=== PATIENT | male | born 1980 | race Caucasian/White ===

== ENCOUNTER 2017-01-28 07:54 | Emergency (ER) | payer BC ==
[~2017-01-28] VITALS: Ht 188 cm; Wt 113.0 kg
[~2017-01-28 07:54] MED LIST: CIPR500T4 PO; METR-1 PO
[2017-01-28 07:57] VITALS: BP 117/82; PULSE 81; RESP 16; TEMP 98.7; O2SAT 97
[2017-01-28] MEDS ORDERED: CITA40TA4 PO (08:06)
[2017-01-28] MEDS ORDERED: LIDOCAINE 1%/EPINEPHrine 1:100,000 SOLN 20 ML VIAL INFIL ONE (08:15)
[2017-01-28] MEDS ORDERED: LIDOCAINE 1%/EPINEPHrine 1:100,000 SOLN 50 ML VIAL INFIL ONE (08:15)
[2017-01-28] MEDS ORDERED: BACT800T5 PO (08:40)
--- NOTE | 2017-01-28 08:41 | PD ---
HPI Chief Complaint: Skin Problem Time Seen by Provider: 08:02 Travel History International Travel<30 days: No Contact w/Intl Traveler<30days: No Traveled to known affect area: No History of Present Illness HPI This 37-year-old male has noted a painful lump on his buttock. This been present for 2 or 3 days. He had some fever last night. There has not been any drainage. There is no history of diabetes PFSH Past Medical History Arthritis: No Asthma: No Autoimmune Disease: No Blood Disorders: No Depression: Yes Heart Rhythm Problems: No Cancer: No Cardiovascular Problems: No High Cholesterol: No Chemotherapy: No Chest Pain: No Congestive Heart Failure: No COPD: No Cerebrovascular Accident: No Diminished Hearing: No Endocrine: No Headaches: No Immune Disorder: No Kidney Stones: No Musculoskeletal: No Neurologic: No Psychiatric: No Reproductive: No Respiratory: No Migraines: No Myocardial Infarction: No Radiation Therapy: No Renal Failure: No Seizures: No Sickle Cell Disease: No Sleep Apnea: No Influenza Vaccination: No Past Surgical History AICD: No Arteriovenous Shunt: No Insulin Pump: No Joint Replacement: No Pacemaker: No Other Surgery: Yes (2006--WISDOM TEETH) Social History Alcohol Use: Yes (1-2 DRINKS NIGHTLY) Tobacco Use: No Substance Use: No Allergies-Medications (Allergen,Severity, Reaction): Coded Allergies: No Known Allergies (Verified , 01/28/17) Reported Meds & Prescriptions Reported Meds & Active Scripts Active Reported Citalopram (Citalopram Hydrobromide) 40 Mg Tab 40 Mg PO DAILY Review of Systems General / Constitutional: Positive: Fever Eyes: No: Blurred Vision HENT: No: Headaches, Vertigo Cardiovascular: No: Chest Pain or Discomfort, Palpitations Respiratory: No: Cough, Shortness of Breath Gastrointestinal: Positive: Nausea Genitourinary: No: Urgency, Frequency Musculoskeletal: No: Myalgias Skin: Positive Rash, Positive Lumps Physical Exam Narrative GENERAL: Well-developed male SKIN: Focused skin assessment warm/dry. HEAD: Atraumatic. Normocephalic. EYES: Pupils equal and round. No scleral icterus. No injection or drainage. ENT: No nasal bleeding or discharge. Mucous membranes pink and moist. NECK: Trachea midline. No JVD. . GASTROINTESTINAL: Abdomen soft, non-tender, nondistended. Hepatic and splenic margins not palpable. On the right buttock there is an area of erythema and swelling. It is tender and is approximately 2 cm in diameter MUSCULOSKELETAL: No obvious deformities. No clubbing. No cyanosis. No edema. NEUROLOGICAL: Awake and alert. No obvious cranial nerve deficits. Motor grossly within normal limits. Normal speech. PSYCHIATRIC: Appropriate mood and affect; insight and judgment normal. Data Data Last Documented VS Vital Signs Date Time Temp Pulse Resp B/P Pulse Ox O2 Delivery O2 Flow Rate FiO2 01/28/17 07:57 98.7 81 16 117/82 97 Orders Lidocai-Epi 1%-1:100,000 Inj (Xylocaine- (01/28/17 08:15) MDM Medical Decision Making Medical Screen Exam Complete: Yes Emergency Medical Condition: Yes Medical Record Reviewed: Yes Differential Diagnosis Differential includes cellulitis, abscess Narrative Course Exam is consistent with an abscess. I&D has been done and pus obtained. The patient will be released with prescription for Bactrim Procedures Procedure Narrative After verbal consent was obtained the area of swelling was treated with 1% lidocaine with adrenaline. An incision was made and pus was obtained. As much pus as possible was expressed from the wound. Approximately 5 cc of quarter- inch packing was inserted. Patient tolerated the procedure well Diagnosis Primary Impression: Abscess of buttock, right Additional Instructions: packing removal 2 days, once packing is out soak in tub Scripts Sulfamethoxazole-Trimethoprim (Bactrim DS)800-160 Mg Tab1 Tab PO BID #14 TAB Ref 0 Prov:Damir Claire MD 01/28/17 Disposition: 01 DISCHARGE HOME Condition: Stable Damir Claire MD Jan 28, 2017 08:41
== END 2017-01-28 08:50 | disposition home or self-care (01) ==
LOC: PHED 07:54
DX: L02.31 Cutaneous abscess of buttock (principal)
CPT/HCPCS: 10061

== ENCOUNTER 2017-06-21 13:29 | Emergency (ER) | payer BC ==
[~2017-06-21] VITALS: Ht 185.4 cm; Wt 113.4 kg
[~2017-06-21 13:29] MED LIST changes: +BACT800T5 PO; -CIPR500T4 PO; +CITA40TA4 PO; -METR-1 PO
[2017-06-21 13:35] VITALS: BP 168/83; PULSE 76; RESP 16; TEMP 98.5; O2SAT 98
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
[2017-06-21] MEDS ORDERED: ONDANSETRON ODT 4 MG TAB PO ONE (14:00)
[2017-06-21] MEDS ORDERED: MORPHINE SULFATE 4 MG/ML INJ IM ONE (14:00)
[2017-06-21] MEDS ORDERED: KETOROLAC TROMETHAMINE 60 MG/2 ML (IM) VIAL IM ONE (14:00)
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
[2017-06-21] MEDS ORDERED: oxyCODONE/ACETAMINOPHEN 10 MG/325 MG TAB PO ONE (14:45)
[2017-06-21] MEDS ORDERED: LIDOCAINE 1%/EPINEPHrine 1:100,000 SOLN 20 ML VIAL INFIL ONE (15:00)
[2017-06-21 15:16] VITALS: RESP 16
[2017-06-21] MEDS ORDERED: IBUP1TAB7 PO (15:30)
== END 2017-06-21 16:11 | disposition home or self-care (01) ==
LOC: PHEFT 13:29
DX: M25.462 Effusion, left knee (principal)
CPT/HCPCS: 20611; 73560; 96372; 99285; E0113; J1885; J2270; L1830